=== PATIENT | female | born 2000 | race Caucasian/White ===

== ENCOUNTER 2022-01-06 09:34 | Emergency (ER) | payer OTHER ==
[~2022-01-06] VITALS: Ht 165.1 cm; Wt 63.5 kg
[2022-01-06 10:00] VITALS: BP 120/78
[2022-01-06] MEDS ORDERED: BACL20TA PO (11:00)
[2022-01-06] MEDS ORDERED: IBUP600T28 PO (11:00)
== END 2022-01-06 11:17 | disposition home or self-care (01) ==
LOC: ER 09:34 → EDBD 09:34 → ER 11:17
DX: M54.2 Cervicalgia (principal); M54.59 Other low back pain; V43.52XA Car driver injured in collision with other type car in traffic accident, initial encounter; Y93.89 Activity, other specified; Y92.410 Unspecified street and highway as the place of occurrence of the external cause; Y99.8 Other external cause status
CPT/HCPCS: 72040